=== PATIENT | female | born 2000 | race Caucasian/White ===

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

== ENCOUNTER 2018-11-29 13:36 | Emergency (ER) | payer MEDICAID ==
[2018-11-29 13:45] VITALS: BP 110/63
[2018-11-29] MEDS ORDERED: LIDOCAINE 2% VISCOUS SOLN 20 ML UDCUP PO ONE (14:08)
[2018-11-29] MEDS ORDERED: MAG HYDROX/AL HYDROX/SIMETH SUSP 30 ML UDCUP PO ONE (14:08)
[2018-11-29] MEDS ORDERED: METOCLOPRAMIDE HCL ORAL SOLN 10 MG/10 ML UDCUP PO ONE (14:08)
--- NOTE | 2018-11-29 14:09 | ER Document Report ---
ED Medical Screen (RME) - General Chief Complaint: Chest Pain Stated Complaint: CHEST WALL PAIN Time Seen by Provider: 11/29/18 14:03 Primary Care Provider: JACQUELYN LANG MD [Primary Care Provider] - Follow up as needed Mode of Arrival: Ambulatory Information source: Patient Notes: Patient is a 18-year-old female presented emergency department with midsternal chest pain that has been ongoing intermittently over the last 5 months. Patient reports it feels like a sharp stabbing burning pain and comes and goes intermittently. She denies any alleviating or exacerbating symptoms. She has not taken any medication for this. Exam: Heart sounds S1-S2 present with no ectopy noted. Lung sounds clear and equal bilaterally. Reproducible pain with palpation of the chest wall. I have greeted and performed a rapid initial assessment of this patient. A comprehensive ED assessment and evaluation of the patient, analysis of test results and completion of the medical decision making process will be conducted by additional ED providers. I have specifically instructed the patient or family members with the patient to immediately return to any nursing staff should anything change in the patient's condition or with their chief complaint. This medical record was dictated with voice recognizing software. There may be grammatical, syntax errors that are unintended. TRAVEL OUTSIDE OF THE [place] IN LAST 30 DAYS: No - Related Data Allergies/Adverse Reactions: No Known Allergies Allergy (Verified 08/15/17 16:26) Past Medical History Renal/ Medical History: Denies: Hx Peritoneal Dialysis Psychiatric Medical History: Reports: Hx Attention Deficit Hyperactivity Disorder, Hx Depression - Immunizations Immunizations up to date: Yes Hx Diphtheria, Pertussis, Tetanus Vaccination: Yes Physical Exam - Vital signs Vitals: Temp Pulse Resp BP Pulse Ox 98.1 F 78 18 110/63 98 11/29/18 13:44 11/29/18 13:44 11/29/18 13:44 11/29/18 13:44 11/29/18 13:44 Course - Vital Signs Vital signs: Temp Pulse Resp BP Pulse Ox 98.1 F 78 18 110/63 98 11/29/18 13:44 11/29/18 13:44 11/29/18 13:44 11/29/18 13:44 11/29/18 13:44 Doctor's Discharge - Discharge Referrals: JACQUELYN LANG MD [Primary Care Provider] - Follow up as needed
--- NOTE | 2018-11-29 15:18 | RADIOLOGY REPORT (SQ) ---
EXAM DESCRIPTION: CHEST 2 VIEWS COMPLETED DATE/TIME: 11/29/2018 2:53 pm REASON FOR STUDY: chest pain COMPARISON: None. EXAM PARAMETERS: NUMBER OF VIEWS: two views TECHNIQUE: Digital Frontal and Lateral radiographic views of the chest acquired. RADIATION DOSE: NA LIMITATIONS: none FINDINGS: LUNGS AND PLEURA: No opacities, masses or pneumothorax. No pleural effusion. MEDIASTINUM AND HILAR STRUCTURES: No masses or contour abnormalities. HEART AND VASCULAR STRUCTURES: Heart normal size. No evidence for failure. BONES: No acute findings. HARDWARE: None in the chest. OTHER: No other significant finding. IMPRESSION: NO ACUTE RADIOGRAPHIC FINDING IN THE CHEST. TECHNICAL DOCUMENTATION: JOB ID: [id number] [employer]- All Rights Reserved Reading location - IP/workstation name: [email or web address]
[2018-11-29] MEDS ORDERED: FAMOTIDINE 20 MG TABLET PO ONE (15:42)
[2018-11-29] MEDS ORDERED: SUCRALFATE 1 GM TABLET PO ONE (15:42)
--- NOTE | 2018-11-29 15:51 | ER Document Report ---
ED General - General Chief Complaint: Chest Pain Stated Complaint: CHEST WALL PAIN Time Seen by Provider: 11/29/18 14:03 Primary Care Provider: [facility] [Provider Group] - Follow up in 1 week JACQUELYN LANG MD [Primary Care Provider] - Follow up in 3-5 days Mode of Arrival: Ambulatory Notes: Patient is a 18-year-old female who presents emergency department with a chief complaint of chest pain. She states that she has had her pain on and off for the past 5 months. The pain is midsternal she states that it radiates to her left side. She states that she has a pain is intermittent. She has a past medical history of PCOS, which she has seen her financial engineer for. Patient states that she feels a little better with the GI cocktail she was given in triage, but continues to have a little bit of pain. TRAVEL OUTSIDE OF THE [place] IN LAST 30 DAYS: No - Related Data Allergies/Adverse Reactions: No Known Allergies Allergy (Verified 08/15/17 16:26) Past Medical History - General Information source: Patient - Social History Smoking Status: Former Smoker Chew tobacco use (# tins/day): No Drug Abuse: None Family History: Reviewed & Not Pertinent Patient has suicidal ideation: No Patient has homicidal ideation: No Renal/ Medical History: Denies: Hx Peritoneal Dialysis Psychiatric Medical History: Reports: Hx Attention Deficit Hyperactivity Disorder, Hx Depression - Immunizations Immunizations up to date: Yes Hx Diphtheria, Pertussis, Tetanus Vaccination: Yes Review of Systems - Review of Systems Notes: REVIEW OF SYSTEMS: CONSTITUTIONAL : Denies recent illness. Denies recent unintentional weight loss. Denies fever, chills, or sweats. EENT: Denies eye, ear, throat, or mouth pain, discharge, or symptoms. Denies nasal or sinus congestion. CARDIOVASCULAR: See HPI RESPIRATORY: Denies shortness of breath, cough, congestion, difficulty breathing, or wheezing. GASTROINTESTINAL: See HPI GENITOURINARY: Denies difficulty urinating, burning, blood in urine, urgency or frequency. MUSCULOSKELETAL: Denies neck and back pain. Denies joint pain or swelling. SKIN: Denies rash, itchiness, or lesions HEMATOLOGIC : Denies easy bruising or bleeding. LYMPHATIC: Denies swollen, painful, enlarged glands. NEUROLOGICAL: Denies no numbness or tingling denies weakness. Denies headache. Denies altered mental status. Denies alteration in speech. PSYCHIATRIC: Denies stress, anxiety, alteration in sleep patterns, or depression. All other systems reviewed and negative. Physical Exam - Vital signs Vitals: Temp Pulse Resp BP Pulse Ox 98.1 F 78 18 110/63 98 11/29/18 13:44 11/29/18 13:44 11/29/18 13:44 11/29/18 13:44 11/29/18 13:44 - Notes Notes: PHYSICAL EXAMINATION: GENERAL: Appears well, obese, well-nourished, no acute distress. HEAD: Normocephalic, atraumatic. EYES: PERRL, conjunctiva normal, all extraocular movements intact, sclera nonicteric ENT: Moist mucous membranes. NECK: Supple, no noticeable swelling, redness, rash. Normal range of motion. LUNGS: Equal breath sounds bilaterally and clear to auscultation. No wheezes rales or rhonchi. CARDIOVASCULAR: S1-S2, regular rate, regular rhythm. Radial pulses 2+, normal. ABDOMEN: Normoactive bowel sounds. Soft, tender right upper quadrant, no guarding, no rebound tenderness, and no masses palpated. EXTREMITIES: Normal strength and range of motion, no pitting or edema. No cyanosis. NEUROLOGICAL: Moves all extremities upon command. Strength 5/5 in all ext remities. PSYCH: Normal mood, normal affect. SKIN: Warm, dry. No rash, lesions, ulcerations noted. Normal skin turgor. Course - Re-evaluation Re-evalutation: 11/29/18 15:50 Patient has some pain in her right upper quadrant of her abdomen. She will be sent for an ultrasound to rule out cholelithiasis. 11/29/18 18:32 Patient had some sludge noted on her right upper quadrant ultrasound. I will have her follow-up with surgery outpatient. I will add chemistries to check to see if her labs are okay. She states that she needs to leave at this time, therefore I will call her if any of her labs are not normal. She states that she feels better after receiving Pepcid and Carafate. I will write her prescription for Pepcid and Carafate. She will follow-up with her primary care provider in regards to this issue. A very low suspicion for an acute FL, myocardial infarction, or any life-threatening etiology at this time. Follow-up precautions were given. Verbal discharge instructions were given to the patient. They verbalized understanding. They are stable for discharge. 11/29/18 20:00 Patient's chemistries are unremarkable at this time. No indication to call the patient due to her labs being normal. - Vital Signs Vital signs: Temp Pulse Resp BP Pulse Ox 98.1 F 78 18 110/63 98 11/29/18 13:44 11/29/18 13:44 11/29/18 13:44 11/29/18 13:44 11/29/18 13:44 - Laboratory Result Diagrams: 11/29/18 14:15 - EKG Interpretation by Me Additional EKG results interpreted by me: 11/29/18 18:33 Sinus rhythm. Rate 73. LA 174; QRS 80; QT 372; QTc 410. No ST elevations or depressions noted. Discharge - Discharge Clinical Impression: Sludge in gallbladder Chest pain Qualifiers: Chest pain type: unspecified Qualified Code(s): R07.9 - Chest pain, unspecified Condition: Stable Disposition: HOME, SELF-CARE Instructions: Low-Fat Diet ([facility]), Reflux Disease (GERD) ([facility]) Additional Instructions: You were seen today in the emergency department for chest pain. Your cardiac work-up was normal. Your chest x-ray was normal. Your ultrasound showed that you had sludge in your gallbladder. Please follow-up with surgery if you continue to have problems. Please follow-up with your primary care provider in regards to this issue. You are being prescribed Pepcid and Carafate. Please take these as directed. Prescriptions: Famotidine [Pepcid 20 mg Tablet] 20 mg PO BID #60 tablet Sucralfate [Carafate] 1 gm PO ACHS #120 oral.susp Referrals: JACQUELYN LANG MD [Primary Care Provider] - Follow up in 3-5 days [facility] [Provider Group] - Follow up in 1 week
--- NOTE | 2018-11-29 15:53 | EKG REPORT ---
SEVERITY:- NORMAL ECG - SINUS RHYTHM : Confirmed by: Yadira Calixto MD 29-Nov-2018 15:51:43
--- NOTE | 2018-11-29 18:09 | RADIOLOGY REPORT (SQ) ---
EXAM DESCRIPTION: U/S ABDOMEN LIMITED W/O DOP COMPLETED DATE/TIME: 11/29/2018 5:34 pm REASON FOR STUDY: RUQ pain/chest COMPARISON: None. TECHNIQUE: Dynamic and static grayscale images acquired of the abdomen and recorded on PACS. Additio nal selected color Doppler and spectral images recorded. LIMITATIONS: None. FINDINGS: PANCREAS: Poorly seen. No mass in the head of the pancreas. LIVER: Increased echogenicity. No definable mass. LIVER VASCULATURE: Normal directional flow of the main portal vein and hepatic veins. GALLBLADDER: A small amount of gallbladder sludge is present. No gallstones are present. There is n o wall thickening or pericholecystic fluid. ULTRASOUND-DETECTED MUSE'S SIGN: Negative. INTRAHEPATIC DUCTS AND COMMON DUCT: CBD and intrahepatic ducts normal caliber. No filling defects. INFERIOR VENA CAVA: Not imaged. AORTA: No aneurysm. RIGHT KIDNEY: Normal size, 11.3 cm. Normal echogenicity. No solid or suspicious masses. No hydroneph rosis. No calcifications. PERITONEAL AND RIGHT PLEURAL SPACE: No ascites or effusions. OTHER: No other significant findings. IMPRESSION: There is mild hepatic steatosis. There is small amount of gallbladder sludge with no ga llstones or evidence of cholecystitis. TECHNICAL DOCUMENTATION: JOB ID: [id number] [employer]- All Rights Reserved Reading location - IP/workstation name: [email or web address]
[2018-11-29 19:07] LABS: ALBUMIN 4.4 g/dL (3.5-5.0); ALKALINE PHOSPHATASE 92 U/L (38-126); ANION GAP 10 (5-19); ASPARTATE AMINO TRANSFERASE 33 U/L (14-36); BILIRUBIN,DIRECT 0.2 mg/dL (0.0-0.4); BILIRUBIN,TOTAL 0.4 mg/dL (0.2-1.3); BLOOD UREA NITROGEN 15 mg/dL (7-20); CALCIUM 9.9 mg/dL (8.4-10.2); CARBON DIOXIDE 26 mmol/L (22-30); CHLORIDE 104 mmol/L (98-107); GLUCOSE 92 mg/dL (75-110); POTASSIUM 4.3 mmol/L (3.6-5.0); TOTAL PROTEIN 7.5 g/dL (6.3-8.2)
== END 2018-11-29 18:45 | disposition home or self-care (01) ==
LOC: ER 13:36
DX: K82.8 Other specified diseases of gallbladder (principal); R07.9 Chest pain, unspecified; R10.11 Right upper quadrant pain; E66.9 Obesity, unspecified
CPT/HCPCS: 93005; 36415; 80053; 84484; 71046; 76705; 93010; J3490 ×5; 99285

== ENCOUNTER 2019-03-03 08:35 | Emergency (ER) | payer BC, MEDICAID ==
[2019-03-03 09:29] LABS: ABSOLUTE BASOPHILS # (AUTO) 0.1 10^3/uL (0.0-0.2); ABSOLUTE EOSINOPHILS # (AUTO) 0.2 10^3/uL (0.0-0.6); ABSOLUTE LYMPHOCYTES (AUTO) 2.3 10^3/uL (0.5-4.7); ABSOLUTE MONOCYTES (AUTO) 1.1 10^3/uL (0.1-1.4); ABSOLUTE NEUT (AUTO) 7.2 10^3/uL (1.7-8.2); BASOPHILS % (AUTO) 0.6 % (0-2); EOSINOPHILS % (AUTO) 1.6 % (0-6); HEMATOCRIT 41.1 % (36.0-47.0); LYMPHOCYTES % (AUTO) 20.8 % (13-45); MEAN CORPUSCULAR HEMOGLOBIN 28.3 pg (27.0-33.4); MEAN CORPUSCULAR HGB CONC 33.9 g/dL (32.0-36.0); MEAN CORPUSCULAR VOLUME 83 fl (80-97); MONOCYTES % (AUTO) 10.1 % (3-13); PLATELET COUNT 234 10^3/uL (150-450); RED BLOOD COUNT 4.93 10^6/uL (3.72-5.28); RED CELL DISTRIBUTION WIDTH 14.2 % (11.5-14.0); SEGMENTED NEUTROPHILS % (AUTO) 66.9 % (42-78); TOTAL CELLS COUNTED % (AUTO) 100 %; WHITE BLOOD COUNT 10.8 10^3/uL (4.0-10.5)
[2019-03-03 09:49] LABS: APPEARANCE,URINE CLOUDY; BILIRUBIN,URINE NEGATIVE (NEGATIVE); CALCIUM OXALATE CRYSTALS,URINE MANY /HPF; COLOR,URINE AMBER; GLUCOSE, URINE NEGATIVE (NEGATIVE); KETONES,URINE NEGATIVE (NEGATIVE); LEUKOCYTE ESTERASE,URINE MODERATE (NEGATIVE); NITRITE,URINE NEGATIVE (NEGATIVE); PROTEIN,URINE 30 mg/dL (NEGATIVE); UROBILINOGEN,URINE NEGATIVE mg/dL (<2.0)
[2019-03-03 09:57] LABS: ALBUMIN 4.4 g/dL (3.5-5.0); ALKALINE PHOSPHATASE 94 U/L (38-126); ANION GAP 9 (5-19); ASPARTATE AMINO TRANSFERASE 37 U/L (14-36); BILIRUBIN,DIRECT 0.1 mg/dL (0.0-0.4); BILIRUBIN,TOTAL 0.6 mg/dL (0.2-1.3); BLOOD UREA NITROGEN 12 mg/dL (7-20); CALCIUM 9.9 mg/dL (8.4-10.2); CARBON DIOXIDE 29 mmol/L (22-30); CHLORIDE 101 mmol/L (98-107); GLUCOSE 82 mg/dL (75-110); TOTAL PROTEIN 7.8 g/dL (6.3-8.2)
--- NOTE | 2019-03-03 10:21 | ER Document Report ---
ED General - General Chief Complaint: Abdominal Pain Stated Complaint: LOW RIGHT PELVIC PAIN Time Seen by Provider: 03/03/19 10:04 Primary Care Provider: MAYRA NELSON MD [ACTIVE STAFF] - Follow up in 1 week JACQUELYN LANG MD [Primary Care Provider] - Follow up in 3-5 days Mode of Arrival: Ambulatory Information source: Patient, Parent, [facility] Records Notes: 19-year-old female with PCOS, ADHD presents with complaint of right lower quadrant abdominal pain that started 4 days prior to arrival. Patient describes the pain as a intermittent stabbing pain that is worse with standing, walking. Patient reports increased urinary frequency but denies dysuria, hematuria, vaginal discharge, fever, chills, nausea, vomiting, diarrhea, black or bloody stools. Patient's last menstrual period was 6 months ago. She is sexually active and does not use protection. TRAVEL OUTSIDE OF THE [place] IN LAST 30 DAYS: No - HPI Onset: Other Onset/Duration: Gradual, Intermittent Quality of pain: Sharp Severity: Moderate Pain Level: 2 Associated symptoms: denies: Body/muscle aches, Chest pain, Diarrhea, Fever, Headache, Nausea, Vomiting, Shortness of breath Exacerbated by: Standing, Movement, Walking Relieved by: Denies Similar symptoms previously: No Recently seen / treated by doctor: No - Related Data Allergies/Adverse Reactions: No Known Allergies Allergy (Verified 03/03/19 08:41) Past Medical History - General Information source: Patient Last Menstrual Period: unknown - Social History Smoking Status: Current Some Day Smoker Chew tobacco use (# tins/day): No Frequency of alcohol use: Occasional Drug Abuse: Marijuana Lives with: Parents Family History: Reviewed & Not Pertinent Patient has suicidal ideation: No Patient has homicidal ideation: No Renal/ Medical History: Reports: Other - PCOS. Denies: Hx Peritoneal Dialysis Psychiatric Medical History: Reports: Hx Attention Deficit Hyperactivity Disorder, Hx Depression - Immunizations Immunizations up to date: Yes Hx Diphtheria, Pertussis, Tetanus Vaccination: Yes Review of Systems - Review of Systems Notes: REVIEW OF SYSTEMS: CONSTITUTIONAL : Denies fever, chills, or sweats. Denies recent illness. Denies weight loss, recent hospitalizations. EENT: Denies visual changes, eye pain. Denies sore throat, oral lesions, difficulty swallowing. CARDIOVASCULAR: Denies chest pain. Denies palpitations. Denies lower extremity edema. RESPIRATORY: Denies cough. Denies shortness of breath, wheezing. GASTROINTESTINAL: Denies abdominal distention. Denies nausea, vomiting, or diarrhea. Denies blood in vomitus, stools, or per rectum. Denies black, tarry stools. Denies constipation. GENITOURINARY: Denies difficulty urinating, painful urination, blood in urine, or vaginal discharge. MUSCULOSKELETAL: Denies back or neck pain or stiffness. Denies joint pain or swelling. SKIN: Denies rash, lesions or sores. HEMATOLOGIC : Denies easy bruising or bleeding. LYMPHATIC: Denies swollen glands. NEUROLOGICAL: Denies confusion or altered mental status. Denies loss of consc iousness. Denies dizziness or lightheadedness. Denies headache. Denies weakness or paralysis. Denies problems difficulty with ambulation, slurred speech. Denies sensory loss, numbness, or tingling. Denies seizures. PSYCHIATRIC: Denies anxiety or stress. Denies depression, suicidal ideation, or homicidal ideation. Denies visual or auditory hallucinations. Physical Exam - Vital signs Vitals: Temp Pulse Resp BP Pulse Ox 97.9 F 85 16 120/77 100 03/03/19 09:21 03/03/19 09:21 03/03/19 09:21 03/03/19 09:21 03/03/19 09:21 - Notes Notes: PHYSICAL EXAMINATION: GENERAL: Well-appearing, well-nourished and in no acute distress. HEAD: Atraumatic, normocephalic. EYES: Pupils equal round and reactive to light, extraocular movements intact, conjunctiva are normal. ENT: Nares patent, oropharynx clear without exudates. Moist mucous membranes. NECK: Normal range of motion, supple without lymphadenopathy LUNGS: Breath sounds clear to auscultation bilaterally and equal. No wheezes rales or rhonchi. HEART: Regular rate and rhythm without murmurs ABDOMEN: Soft, suprapubic tenderness with palpation., nondistended abdomen. No guarding, no rebound. No masses appreciated. No CVA tenderness. Female : deferred Musculoskeletal: Normal range of motion, no pitting or edema. No cyanosis. NEUROLOGICAL: Cranial nerves grossly intact. Normal speech, normal gait. Normal sensory, motor exams PSYCH: Normal mood, normal affect. SKIN: Warm, Dry, normal turgor, no rashes or lesions noted. Course - Re-evaluation Re-evalutation: Laboratory 03/03/19 03/03/19 03/03/19 09:12 09:12 09:12 WBC 10.8 H RBC 4.93 Hgb 14.0 Hct 41.1 MCV 83 MCH 28.3 MCHC 33.9 RDW 14.2 H Plt Count 234 Lymph % (Auto) 20.8 [place] % (Auto) 10.1 Eos % (Auto) 1.6 Baso % (Auto) 0.6 Absolute Neuts (auto) 7.2 Absolute Lymphs (auto) 2.3 Absolute Monos (auto) 1.1 Absolute Eos (auto) 0.2 Absolute Basos (auto) 0.1 Seg Neutrophils % 66.9 Sodium 139.3 Potassium 4.0 Chloride 101 Carbon Dioxide 29 Anion Gap 9 BUN 12 Creatinine 0.81 Est GFR ( Amer) > 60 Est GFR (MDRD) Non-Af > 60 Glucose 82 Calcium 9.9 Total Bilirubin 0.6 Direct Bilirubin 0.1 Neonat Total Bilirubin Not Reportable Neonat Direct Bilirubin Not Reportable Neonat Indirect Bili Not Reportable AST 37 H ALT 52 Alkaline Phosphatase 94 Total Protein 7.8 Albumin 4.4 Lipase 41.8 Urine Color NEPTALI Urine Appearance CLOUDY Urine pH 5.0 Ur Specific [place] 1.030 Urine Protein 30 H Urine Glucose (UA) NEGATIVE Urine Ketones NEGATIVE Urine Blood MODERATE H Urine Nitrite NEGATIVE Urine Bilirubin NEGATIVE Urine Urobilinogen NEGATIVE Ur Leukocyte Esterase MODERATE H Urine WBC (Auto) 24 Urine RBC (Auto) 22 U Hyaline Cast (Auto) 3 Urine Bacteria (Auto) 1+ Squamous Epi Cells Auto 35 Calcium Oxalate Cr Auto MANY Urine Mucus (Auto) MANY Urine Ascorbic Acid NEGATIVE Urine HCG, Qual NEGATIVE Chlamydia DNA (PCR) N.gonorrhoeae DNA (PCR) 03/03/19 09:12 WBC RBC Hgb Hct MCV MCH MCHC RDW Plt Count Lymph % (Auto) [place] % (Auto) Eos % (Auto) Baso % (Auto) Absolute Neuts (auto) Absolute Lymphs (auto) Absolute Monos (auto) Absolute Eos (auto) Absolute Basos (auto) Seg Neutrophils % Sodium Potassium Chloride Carbon Dioxide Anion Gap BUN Creatinine Est GFR ( Amer) Est GFR (MDRD) Non-Af Glucose Calcium Total Bilirubin Direct Bilirubin Neonat Total Bilirubin Neonat Direct Bilirubin Neonat Indirect Bili AST ALT Alkaline Phosphatase Total Protein Albumin Lipase Urine Color Urine Appearance Urine pH Ur Specific [place] Urine Protein Urine Glucose (UA) Urine Ketones Urine Blood Urine Nitrite Urine Bilirubin Urine Urobilinogen Ur Leukocyte Esterase Urine WBC (Auto) Urine RBC (Auto) U Hyaline Cast (Auto) Urine Bacteria (Auto) Squamous Epi Cells Auto Calcium Oxalate Cr Auto Urine Mucus (Auto) Urine Ascorbic Acid Urine HCG, Qual Chlamydia DNA (PCR) Cancelled N.gonorrhoeae DNA (PCR) Cancelled Laboratory 03/03/19 03/03/19 03/03/19 09:12 09:12 09:12 WBC 10.8 H RBC 4.93 Hgb 14.0 Hct 41.1 MCV 83 MCH 28.3 MCHC 33.9 RDW 14.2 H Plt Count 234 Lymph % (Auto) 20.8 [place] % (Auto) 10.1 Eos % (Auto) 1.6 Baso % (Auto) 0.6 Absolute Neuts (auto) 7.2 Absolute Lymphs (auto) 2.3 Absolute Monos (auto) 1.1 Absolute Eos (auto) 0.2 Absolute Basos (auto) 0.1 Seg Neutrophils % 66.9 Sodium 139.3 Potassium 4.0 Chloride 101 Carbon Dioxide 29 Anion Gap 9 BUN 12 Creatinine 0.81 Est GFR ( Amer) > 60 Est GFR (MDRD) Non-Af > 60 Glucose 82 Calcium 9.9 Total Bilirubin 0.6 Direct Bilirubin 0.1 Neonat Total Bilirubin Not Reportable Neonat Direct Bilirubin Not Reportable Neonat Indirect Bili Not Reportable AST 37 H ALT 52 Alkaline Phosphatase 94 Total Protein 7.8 Albumin 4.4 Lipase 41.8 Urine Color NEPTALI Urine Appearance CLOUDY Urine pH 5.0 Ur Specific [place] 1.030 Urine Protein 30 H Urine Glucose (UA) NEGATIVE Urine Ketones NEGATIVE Urine Blood MODERATE H Urine Nitrite NEGATIVE Urine Bilirubin NEGATIVE Urine Urobilinogen NEGATIVE Ur Leukocyte Esterase MODERATE H Urine WBC (Auto) 24 Urine RBC (Auto) 22 U Hyaline Cast (Auto) 3 Urine Bacteria (Auto) 1+ Squamous Epi Cells Auto 35 Calcium Oxalate Cr Auto MANY Urine Mucus (Auto) MANY Urine Ascorbic Acid NEGATIVE Urine HCG, Qual NEGATIVE Chlamydia DNA (PCR) N.gonorrhoeae DNA (PCR) 03/03/19 09:12 WBC RBC Hgb Hct MCV MCH MCHC RDW Plt Count Lymph % (Auto) [place] % (Auto) Eos % (Auto) Baso % (Auto) Absolute Neuts (auto) Absolute Lymphs (auto) Absolute Monos (auto) Absolute Eos (auto) Absolute Basos (auto) Seg Neutrophils % Sodium Potassium Chloride Carbon Dioxide Anion Gap BUN Creatinine Est GFR ( Amer) Est GFR (MDRD) Non-Af Glucose Calcium Total Bilirubin Direct Bilirubin Neonat Total Bilirubin Neonat Direct Bilirubin Neonat Indirect Bili AST ALT Alkaline Phosphatase Total Protein Albumin Lipase Urine Color Urine Appearance Urine pH Ur Specific [place] Urine Protein Urine Glucose (UA) Urine Ketones Urine Blood Urine Nitrite Urine Bilirubin Urine Urobilinogen Ur Leukocyte Esterase Urine WBC (Auto) Urine RBC (Auto) U Hyaline Cast (Auto) Urine Bacteria (Auto) Squamous Epi Cells Auto Calcium Oxalate Cr Auto Urine Mucus (Auto) Urine Ascorbic Acid Urine HCG, Qual Chlamydia DNA (PCR) Cancelled N.gonorrhoeae DNA (PCR) Cancelled Temp Pulse Resp BP Pulse Ox 97.9 F 85 16 120/77 100 03/03/19 09:21 03/03/19 09:21 03/03/19 09:21 03/03/19 09:21 03/03/19 09:21 Abdomen Ultrasound 03/03/19 00:00 IMPRESSION: Fatty liver No gallstones. No gallbladder wall thickening. Negative sonographic Calvin's sign Transvaginal US 03/03/19 10:13 IMPRESSION: LEFT OVARY CYST 2.3 X 2 CM WITH THICK WALL, NO INTERNAL COLOR FLOW. THIS PROBABLY REPRESENTS RESIDUA OF AN OLD HEMORRHAGIC CYST. CONSIDER FOLLOW- UP PELVIC ULTRASOUND IN 1 TO 2 MENSTRUAL CYCLES TO ASSESS FOR RESOLUTION OF THIS FINDING OTHERWISE, UNREMARKABLE TRANSVAGINAL PELVIC ULTRASOUND. 03/03/19 12:22 Patient presents with symptoms consistent with an acute cystitis. Vitals wnl. No history of fever, flank pain, or constitution symptoms to suggest ascending infection at this time. Patient is well in appearance, tolerating oral intake without difficulty. No focal abdominal tenderness to suggest acute appendicitis, biliary pathology, acute pancreatitis, tubo-ovarian abscesses, or pelvic inflammatory disease. Patient will be started on antibiotics at this time. A culture has been sent. They will be discharged with return precautions and follow-up recommendations. Patient was provided a copy of her ultrasound report. She was informed of incidental findings of hemorrhagic cyst and need for repeat ultrasound. Parents are at the bedside. Patient was evaluated and treated as appropriate for the patient's presenting symptoms and complaint, with consideration of any critical or life threatening conditions that may be associated with their obtained history and exam as noted above. All results were discussed with patient and... Patient provided the opportunity to ask questions, and express concerns. Patient was educated on treatments based on their presumed diagnosis as noted above. At this time we will discharge the patient with return precautions and follow-up recommendations. Verbal discharge instructions given a the bedside. Medication warnings reviewed. Patient is in agreement with this plan and has verbalized understanding of return precautions. After careful consideration I feel that that patient can be safely discharged from the emergency department, they were advised to followup with a primary care physician in 2-3 days. Dictation on this chart was performed using voice recognition software and may result in unintended grammatical, spelling, syntax or errors. - Vital Signs Vital signs: Temp Pulse Resp BP Pulse Ox 97.9 F 85 16 120/77 100 03/03/19 09:21 03/03/19 09:21 03/03/19 09:21 03/03/19 09:21 03/03/19 09:21 - Laboratory Result Diagrams: 03/03/19 09:12 03/03/19 09:12 Laboratory results interpreted by me: 03/03/19 03/03/19 03/03/19 09:12 09:12 09:12 WBC 10.8 H RDW 14.2 H AST 37 H Urine Protein 30 H Urine Blood MODERATE H Ur Leukocyte Esterase MODERATE H - Diagnostic Test Radiology reviewed: Image reviewed, Reports reviewed Discharge - Discharge Clinical Impression: Hemorrhagic cyst Urinary tract infection Qualifiers: Urinary tract infection type: site unspecified Hematuria presence: without hematuria Qualified Code(s): N39.0 - Urinary tract infection, site not specified Condition: Good Disposition: HOME, SELF-CARE Instructions: Ovarian Cyst ([facility]), Urinary Tract Infection ([facility]) Additional Instructions: Your urine shows findings consistent with a urinary tract infection. Please take all the antibiotics as directed even if your symptoms have improved. Please follow-up with your primary care physician as needed. Return to emergency room if you develop fever >101F, persistent vomiting, become lethargic, have severe pain in your sides, or any other symptoms that are concerning to you. Prescriptions: Cephalexin Monohydrate [Keflex 500 mg Capsule] 500 mg PO BID 5 Days #10 capsule Referrals: MAYRA NELSON MD [ACTIVE STAFF] - Follow up in 1 week JACQUELYN LANG MD [Primary Care Provider] - Follow up in 3-5 days
[2019-03-03] MEDS ORDERED: CEFTRIAXONE 1 GM/D5W RTU 1 GM/50 ML RTUPB IV ONE (11:00)
--- NOTE | 2019-03-03 12:00 | RADIOLOGY REPORT (SQ) ---
EXAM DESCRIPTION: U/S ABDOMEN LIMITED W/O DOP COMPLETED DATE/TIME: 03/03/2019 11:34 am REASON FOR STUDY: Eval GB COMPARISON: Right upper quadrant ultrasound 11/29/2018 TECHNIQUE: Dynamic and static grayscale images acquired of the abdomen and recorded on PACS. Additio nal selected color Doppler and spectral images recorded. LIMITATIONS: Midline bowel gas, large body habitus FINDINGS: PANCREAS: Limited view of the midline pancreas unremarkable LIVER: Echogenic from diffuse fatty infiltration or diffuse hepatocellular disease. No gross biliary ductal dilatation or focal masses. No hepatomegaly LIVER VASCULATURE: Normal directional flow of the main portal vein and hepatic veins. GALLBLADDER: No stones. Normal wall thickness. No pericholecystic fluid. ULTRASOUND-DETECTED CALVIN'S SIGN: Negative. INTRAHEPATIC DUCTS AND COMMON DUCT: CBD and intrahepatic ducts normal caliber. No filling defects. INFERIOR VENA CAVA: Not well seen due to attenuation from the liver AORTA: Not well seen due to midline bowel gas RIGHT KIDNEY: Normal size. Normal echogenicity. No solid or suspicious masses. No hydronephrosis. No calcifications. PERITONEAL AND RIGHT PLEURAL SPACE: No ascites or effusions. OTHER: No other significant findings. IMPRESSION: Fatty liver No gallstones. No gallbladder wall thickening. Negative sonographic Calvin's sign TECHNICAL DOCUMENTATION: JOB ID: [id number] [employer]- All Rights Reserved Reading location - IP/workstation name: [email or web address]
--- NOTE | 2019-03-03 12:05 | RADIOLOGY REPORT (SQ) ---
EXAM DESCRIPTION: U/S NON OB PEL TV W/DOPPLER COMPLETED DATE/TIME: 03/03/2019 11:34 am REASON FOR STUDY: rlq pain COMPARISON: Pelvic ultrasound 05/21/2017, 04/26/2016 TECHNIQUE: Dynamic and static grayscale images acquired of the pelvis via transvaginal approach and recorded on PACS. Additional selected color Doppler and spectral images recorded. Urine test negative today. LIMITATIONS: None. FINDINGS: UTERUS: Contour normal. No mass. Uterus measures 8 x 4 x 3 cm in size ENDOMETRIAL STRIPE: No focal or generalized thickening. No masses. 8 mm in thickness CERVIX: Closed, 2 cm in length with 15 mm septated nabothian cyst. RIGHT OVARY AND DOPPLER: Normal size, 2.7 x 2 x 1.7 cm. No worrisome masses. Normal arterial vascular flow without evidence for torsion. LEFT OVARY AND DOPPLER: Normal size, 4.1 x 2.5 x 2.3 cm in size. There is a thick walled cyst with a nechoic central fluid. Overall this measures 2.3 x 2 cm in size. No color flow in the wall. This p robably represents a resolved hemorrhagic left ovarian cyst. Normal ovary arterial vascular flow without evidence for torsion. IMPRESSION: LEFT OVARY CYST 2.3 X 2 CM WITH THICK WALL, NO INTERNAL COLOR FLOW. THIS PROBABLY REPRE SENTS RESIDUA OF AN OLD HEMORRHAGIC CYST. CONSIDER FOLLOW-UP PELVIC ULTRASOUND IN 1 TO 2 MENSTRUAL C YCLES TO ASSESS FOR RESOLUTION OF THIS FINDING OTHERWISE, UNREMARKABLE TRANSVAGINAL PELVIC ULTRASOUND. TECHNICAL DOCUMENTATION: JOB ID: [id number] [employer]- All Rights Reserved Rev-08/28 Reading location - IP/workstation name: [email or web address]
[2019-03-03 12:24] LABS: CHLAM PCR NOT DETECTED (NOT DETECT)
[2019-03-03 12:36] VITALS: BP 100/60
== END 2019-03-03 12:37 | disposition home or self-care (01) ==
LOC: ER 08:35
DX: N39.0 Urinary tract infection, site not specified (principal); E28.2 Polycystic ovarian syndrome; K76.0 Fatty (change of) liver, not elsewhere classified; R10.31 Right lower quadrant pain; R35.0 Frequency of micturition; F17.200 Nicotine dependence, unspecified, uncomplicated; F12.10 Cannabis abuse, uncomplicated
CPT/HCPCS: 36415; 83690; 85025; 81025; 80053; 81001; 87491; 87591; 76705; 76830; 93976; J0696

== ENCOUNTER 2019-04-26 17:18 | Emergency (ER) | payer BC ==
--- NOTE | 2019-04-26 18:34 | ER Document Report ---
ED Medical Screen (RME) - General Chief Complaint: Flank Pain Stated Complaint: RIGHT FLANK PAIN Time Seen by Provider: 04/26/19 18:30 Primary Care Provider: JACQUELYN LANG MD [Primary Care Provider] - Follow up as needed TRAVEL OUTSIDE OF THE [place] IN LAST 30 DAYS: No - HPI Notes: 04/26/19 18:33 Patient is a 19-year-old female with a history of gallbladder sludge who presents complaining right upper quadrant pain that is been intermittent for the past couple months and having nausea and vomiting over the past couple days with increase of pain. No fever. I have treated and performed a rapid initial assessment of this patient. A comprehensive ED assessment and evaluation of the patient, analysis of test results and completion of medical decision making process will be conducted by additional ED providers. PHYSICAL EXAMINATION: GENERAL: Well-appearing, well-nourished and in no acute distress. A&Ox4. Answers questions appropriately. Abdomen: Limited exam in triage, but tenderness noted to the right upper quadrant. - Related Data Allergies/Adverse Reactions: No Known Allergies Allergy (Verified 04/26/19 18:25) Past Medical History - Social History Chew tobacco use (# tins/day): No Frequency of alcohol use: Occasional Renal/ Medical History: Denies: Hx Peritoneal Dialysis Psychiatric Medical History: Reports: Hx Attention Deficit Hyperactivity Disorder, Hx Depression - Immunizations Immunizations up to date: Yes Hx Diphtheria, Pertussis, Tetanus Vaccination: Yes Physical Exam - Vital signs Vitals: Temp Pulse Resp BP Pulse Ox 98.1 F 76 20 112/68 97 04/26/19 17:43 04/26/19 17:43 04/26/19 17:43 04/26/19 17:43 04/26/19 17:43 Course - Vital Signs Vital signs: Temp Pulse Resp BP Pulse Ox 98.1 F 76 20 112/68 97 04/26/19 17:43 04/26/19 17:43 04/26/19 17:43 04/26/19 17:43 04/26/19 17:43 Doctor's Discharge - Discharge Referrals: JACQUELYN LANG MD [Primary Care Provider] - Follow up as needed
[2019-04-26 19:01] LABS: ABSOLUTE BASOPHILS # (AUTO) 0.1 10^3/uL (0.0-0.2); ABSOLUTE EOSINOPHILS # (AUTO) 0.1 10^3/uL (0.0-0.6); ABSOLUTE LYMPHOCYTES (AUTO) 2.4 10^3/uL (0.5-4.7); ABSOLUTE MONOCYTES (AUTO) 0.6 10^3/uL (0.1-1.4); ABSOLUTE NEUT (AUTO) 6.4 10^3/uL (1.7-8.2); BASOPHILS % (AUTO) 0.7 % (0-2); EOSINOPHILS % (AUTO) 1.4 % (0-6); HEMATOCRIT 41.8 % (36.0-47.0); HEMOGLOBIN 13.9 g/dL (12.0-15.5); LYMPHOCYTES % (AUTO) 25.1 % (13-45); MEAN CORPUSCULAR HGB CONC 33.3 g/dL (32.0-36.0); MEAN CORPUSCULAR VOLUME 84 fl (80-97); MONOCYTES % (AUTO) 6.5 % (3-13); PLATELET COUNT 247 10^3/uL (150-450); RED BLOOD COUNT 4.98 10^6/uL (3.72-5.28); RED CELL DISTRIBUTION WIDTH 14.5 % (11.5-14.0); SEGMENTED NEUTROPHILS % (AUTO) 66.3 % (42-78); TOTAL CELLS COUNTED % (AUTO) 100 %; WHITE BLOOD COUNT 9.7 10^3/uL (4.0-10.5)
[2019-04-26 19:06] LABS: APPEARANCE,URINE CLOUDY; BILIRUBIN,URINE NEGATIVE (NEGATIVE); COLOR,URINE YELLOW; GLUCOSE, URINE NEGATIVE (NEGATIVE); KETONES,URINE TRACE mg/dL (NEGATIVE); PROTEIN,URINE 30 mg/dL (NEGATIVE); URINE SPECIFIC GRAVITY 1.029; UROBILINOGEN,URINE NEGATIVE mg/dL (<2.0)
[2019-04-26 19:25] LABS: ALBUMIN 4.5 g/dL (3.5-5.0); ALKALINE PHOSPHATASE 100 U/L (38-126); ANION GAP 12 (5-19); ASPARTATE AMINO TRANSFERASE 46 U/L (14-36); BILIRUBIN,DIRECT 0.3 mg/dL (0.0-0.4); BILIRUBIN,TOTAL 0.6 mg/dL (0.2-1.3); BLOOD UREA NITROGEN 17 mg/dL (7-20); CALCIUM 10.1 mg/dL (8.4-10.2); CARBON DIOXIDE 24 mmol/L (22-30); CHLORIDE 104 mmol/L (98-107); GLUCOSE 86 mg/dL (75-110); POTASSIUM 4.5 mmol/L (3.6-5.0)
[2019-04-26] MEDS ORDERED: NORMAL SALINE 1000 ML 1,000 ML IV ONE (19:30)
--- NOTE | 2019-04-26 19:31 | ER Document Report ---
ED GI/ - General Chief Complaint: Flank Pain Stated Complaint: RIGHT FLANK PAIN Time Seen by Provider: 04/26/19 18:30 Primary Care Provider: [facility] [Provider Group] - Follow up as needed Notes: Patient is a 19-year-old female with a history of PCOS who presents to the emergency department with a chief complaint of upper abdominal pain. Patient reports that she has been told in the past that she has gallbladder sludge. Patient reports she has had intermittent upper abdominal pain over the past few months which did become worse over the past few days. Patient reports that this was exacerbated by eating Kiny[place]anda food. Patient also reports that she is tender throughout her whole abdomen. Patient reports her last bowel movement was a few days ago. Patient reports she had multiple episodes of vomiting a few days ago after eating [employer]. Patient reports that her boyfriend also had similar symptoms as he did eat the same thing. Patient denies fever. Patient also reports urinary frequency. Denies back pain. TRAVEL OUTSIDE OF THE [place] IN LAST 30 DAYS: No - Related Data Allergies/Adverse Reactions: No Known Allergies Allergy (Verified 04/26/19 18:25) Past Medical History - General Information source: Patient - Social History Smoking Status: Never Smoker Chew tobacco use (# tins/day): No Frequency of alcohol use: Occasional Lives with: Spouse/Significant other Family History: Reviewed & Not Pertinent Patient has suicidal ideation: No Patient has homicidal ideation: No - Past Medical History Cardiac Medical History: Reports: None Pulmonary Medical History: Reports: None EENT Medical History: Reports: None Neurological Medical History: Reports: None Endocrine Medical History: Reports: None Renal/ Medical History: Reports: None. Denies: Hx Peritoneal Dialysis Malignancy Medical History: Reports: None GI Medical History: Reports: None Musculoskeletal Medical History: Reports None Skin Medical History: Reports None Psychiatric Medical History: Reports: Hx Attention Deficit Hyperactivity Disorder, Hx Depression Traumatic Medical History: Reports: None Infectious Medical History: Reports: None Surgical Hx: Negative - Immunizations Immunizations up to date: Yes Hx Diphtheria, Pertussis, Tetanus Vaccination: Yes Review of Systems - Review of Systems Constitutional: No symptoms reported EENT: No symptoms reported Cardiovascular: No symptoms reported Respiratory: No symptoms reported Gastrointestinal: See HPI Genitourinary: See HPI Female Genitourinary: No symptoms reported Musculoskeletal: No symptoms reported Skin: No symptoms reported Hematologic/Lymphatic: No symptoms reported Neurological/Psychological: No symptoms reported Physical Exam - Vital signs Vitals: Temp Pulse Resp BP Pulse Ox 98.1 F 76 20 112/68 97 04/26/19 17:43 04/26/19 17:43 04/26/19 17:43 04/26/19 17:43 04/26/19 17:43 Interpretation: Normal - Notes Notes: GENERAL: Well-appearing, well-nourished and in no acute distress. HEAD: Atraumatic, normocephalic. EYES: Pupils equal round and reactive to light, extraocular movements intact, sclera anicteric, conjunctiva are normal. ENT: Nares patent, oropharynx clear without exudates. Moist mucous membranes. NECK: Normal range of motion, supple without lymphadenopathy or JVD. LUNGS: Breath sounds clear to auscultation bilaterally and equal. No wheezes rales or rhonchi. HEART: Regular rate and rhythm without murmurs, rubs or gallops. ABDOMEN: Soft, generalized abdominal tenderness, worse in upper abd with palpation, normoactive bowel sounds. No guarding, no rebound. No masses appreciated. BACK: No cervical, thoracic, lumbar midline tenderness. No saddle anesthesia, normal distal neurovascular exam. GENITOURINARY: Deferred. EXTREMITIES: Normal range of motion, no pitting or edema. No clubbing or cyanosis. NEUROLOGICAL: Cranial nerves II through XII grossly intact. Normal speech, normal gait. PSYCH: Normal mood, normal affect. SKIN: Warm, Dry, normal turgor, no rashes or lesions noted. Course - Re-evaluation Re-evalutation: 04/26/19 20:18 Patient ultrasound of the right upper quadrant was essentially negative. No concern for acute cholecystitis. Patient does have a fatty liver. This would explain the slight elevation in her AST. Patient does have significant upper abdominal quadrant tenderness as well as some diffuse lower abdominal tenderness. Patient reports she has never had a CAT scan in the past. Will o btain a CT. Patient reports she does have a history of PCOS but that the lower abdominal pain is different. 04/26/19 22:[address] the abdomen did show a fatty liver, a cyst on the left ovary. Did not visualize the appendix. My concern for appendicitis is low as she is having mostly upper abdominal discomfort and left upper quadrant pain. Patient to be referred to [facility] for continued right upper quadrant pain. Patient is nontoxic-appearing in no acute distress. Patient's urinalysis was slightly contaminated with 32 epithelial cells. We will treat the patient as she does have a urinary frequency. Patient given strict return precautions. - Vital Signs Vital signs: Temp Pulse Resp BP Pulse Ox 98.1 F 76 20 112/68 97 04/26/19 17:43 04/26/19 17:43 04/26/19 17:43 04/26/19 17:43 04/26/19 17:43 - Laboratory Result Diagrams: 04/26/19 18:45 04/26/19 18:45 Laboratory results interpreted by me: 04/26/19 04/26/19 04/26/19 18:45 18:45 18:45 RDW 14.5 H AST 46 H Urine Protein 30 H Urine Ketones TRACE H Urine Blood MODERATE H Leukocyte Esterase Rfl LARGE H 04/26/19 20:17 Patient does not show a significant leukocytosis, anemia, alteration electrolytes or kidney function. Patient does have a slight increase in her AST. Patient does have a large amount of leukocytes, and 48 WBCs although there was a significant amount of epithelial cells at 32. Patient a UCG is negative. Laboratory 04/26/19 04/26/19 04/26/19 18:45 18:45 18:45 WBC 9.7 RBC 4.98 Hgb 13.9 Hct 41.8 MCV 84 MCH 28.0 MCHC 33.3 RDW 14.5 H Plt Count 247 Lymph % (Auto) 25.1 Nicholas % (Auto) 6.5 Eos % (Auto) 1.4 Baso % (Auto) 0.7 Absolute Neuts (auto) 6.4 Absolute Lymphs (auto) 2.4 Absolute Monos (auto) 0.6 Absolute Eos (auto) 0.1 Absolute Basos (auto) 0.1 Seg Neutrophils % 66.3 Sodium 140.1 Potassium 4.5 Chloride 104 Carbon Dioxide 24 Anion Gap 12 BUN 17 Creatinine 0.80 Est GFR ( Amer) > 60 Est GFR (MDRD) Non-Af > 60 Glucose 86 Calcium 10.1 Total Bilirubin 0.6 Direct Bilirubin 0.3 Neonat Total Bilirubin Not Reportable Neonat Direct Bilirubin Not Reportable Neonat Indirect Bili Not Reportable AST 46 H ALT 67 Alkaline Phosphatase 100 Total Protein 8.0 Albumin 4.5 Lipase 50.2 Urine Color YELLOW Urine Appearance CLOUDY Urine pH 5.0 Ur Specific [place] 1.029 Urine Protein 30 H Urine Glucose (UA) NEGATIVE Urine Ketones TRACE H Urine Blood MODERATE H Urine Nitrite (Reflex) NEGATIVE Urine Bilirubin NEGATIVE Urine Urobilinogen NEGATIVE Leukocyte Esterase Rfl LARGE H Urine RBC (Auto) 3 Urine WBC (Reflex) 48 Squamous Epi Cells Auto 32 Urine Mucus (Auto) FEW Urine Ascorbic Acid NEGATIVE Urine HCG, Qual NEGATIVE - Diagnostic Test Radiology reviewed: Reports reviewed Radiology results interpreted by me: 04/26/19 21:22 Abdomen Ultrasound 04/26/19 18:32 IMPRESSION: NORMAL RIGHT UPPER QUADRANT ULTRASOUND. Abdomen/Pelvis CT 04/26/19 20:14 IMPRESSION: No acute intra-abdominal process is identified. Incidental note is made of hepatic steatosis and a presumed small dermoid of the left ovary. TECHNICAL DOCUMENTATION: Quality ID # 436: Final reports with documentation of one or more dose reduction techniques (e.g., Automated exposure control, adjustment of the mA and/or kV according to patient size, use of iterative reconstruction technique) copyright 2011 [employer]- All Rights Reserved Discharge - Discharge Clinical Impression: Abdominal pain, Urinary frequency, Urinary tract infection, Dermoid cyst of left ovary, Fatty liver Condition: Stable Disposition: HOME, SELF-CARE Additional Instructions: It was found that you do have a small dermoid cyst on the left ovary. It was also noted that you have a fatty liver. They were unable to visualize the appendix. Other than that there was no acute abnormality of the abdomen. It is unsure what is causing her discomfort. This could be exacerbated from your gallbladder sludge. At this time there is no acute inflammation of the gallbladder. I have referred you to [facility]. Please call them to make a follow-up appointment. Please avoid greasy and high fatty foods. Over the next 24 to 48 hours please monitor for pain that becomes more severe, steady and concentrated in the specific area, uncontrollable vomiting, diarrhea, shaking, chills and fever greater than 100. If you experience any new or worsening symptoms please return to the emergency department. You are going to be treated for urinary tract infection. Abdominal Pain There are many causes of abdominal pain. Pain can mean a serious problem requiring surgery (such as appendicitis). It can also be an innocent problem that goes away on its own (such as a viral infection). Often, time must pass to determine the cause of pain. The physician does not feel that hospitalization is necessary, at present. Things may change within the next 24 hours. Call the doctor or come back for re- examination if any problems occur, such as: (1) Pain that becomes more severe, steady, or becomes concentrated in one specific area. Also, pain that is more severe with movement or coughing. (2) Vomiting that persists or becomes more frequent. (3) Blood in the vomitus, urine, or bowel movements. Blood in the stool may have a tarry or black appearance. (4) Shaking chills or fever greater than 100 degrees F. (5) The abdomen becomes more distended or swollen. (6) Bowel movements cease. (7) Failure to improve as expected. Urinary Tract Infection Your evaluation indicates that you have a urinary tract infection. This is due to germs growing in the bladder. This is a common problem. This infection usually responds quickly to antibiotics. Your antibiotic should be taken exactly as prescribed. Drink plenty of fluids -- three to four quarts a day. Occasionally, a bladder anesthetic will be prescribed to help stop the feeling of urgency until the antibiotic has a chance to clear the infection. This may cause your urine to be dark orange. Certain urine infections require a culture. If the doctor obtained a culture, the results will be back in two days. You should call to see if a change in treatment is needed. A repeat urinalysis after you finish treatment is often recommended. The physician will let you know if further testing is required. Call the doctor if you develop fever, chills, flank pain, inability to urin ate, or blood in the urine. Prescriptions: Cephalexin Monohydrate [Keflex 500 mg Capsule] 500 mg PO BID 5 Days #10 capsule Referrals: [facility] [Provider Group] - Follow up as needed
--- NOTE | 2019-04-26 20:06 | RADIOLOGY REPORT (SQ) ---
EXAM DESCRIPTION: U/S ABDOMEN LIMITED W/O DOP COMPLETED DATE/TIME: 04/26/2019 7:37 pm REASON FOR STUDY: RUQ pain COMPARISON: 03/03/2019, 11/29/2018 TECHNIQUE: Dynamic and static grayscale images acquired of the abdomen and recorded on PACS. Coreyo silvio selected color Doppler and spectral images recorded. LIMITATIONS: None. FINDINGS: PANCREAS: Limited visualization. LIVER: Fatty infiltration. 17.7 cm. LIVER VASCULATURE: Normal directional flow of the main portal vein and hepatic veins. GALLBLADDER: No stones. Normal wall thickness. No pericholecystic fluid. ULTRASOUND-DETECTED MUSE'S SIGN: Negative. INTRAHEPATIC DUCTS AND COMMON DUCT: CBD and intrahepatic ducts normal caliber. No filling defects. INFERIOR VENA CAVA: Normal flow. AORTA: No aneurysm. RIGHT KIDNEY: Normal size. Normal echogenicity. No solid or suspicious masses. No hydronephrosis. No calcifications. PERITONEAL AND RIGHT PLEURAL SPACE: No ascites or effusions. OTHER: No other significant findings. IMPRESSION: NORMAL RIGHT UPPER QUADRANT ULTRASOUND. TECHNICAL DOCUMENTATION: JOB ID: [id number]- All Rights Reserved Reading location - IP/workstation name: [email or web address]
--- NOTE | 2019-04-26 21:11 | RADIOLOGY REPORT (SQ) ---
EXAM DESCRIPTION: CT ABDOMEN PELVIS WITH IV CONTRAST COMPLETED DATE/TME: 04/26/2019 20:14 CLINICAL HISTORY: 19 years, Female, generalized abdominal pain, worse upper abd COMPARISON: None. TECHNIQUE: Images stored on PACS. All CT scanners at this facility use dose modulation, iterative reconstruction, and/or weight based dosing when appropriate to reduce radiation dose to as low as reasonably achievable (ALARA). [facility]: Dose Right [facility]: CareDose [facility]: Dose Right [facility]: Teradose 4D [facility]: [employer] LIMITATIONS: None. FINDINGS: Lung bases are grossly clear. The heart is of normal size. No pleural or pericardial fluid. The liver is fatty infiltrated. Focal fatty sparing is seen in the gallbladder fossa. Gallbladder is nondistended without inflammatory change. The pancreas, spleen, both adrenals, and both kidneys are unremarkable. The bowel is nonobstructed. It is unopacified with oral contrast. No focal inflammatory changes. The appendix is not seen. Pelvic contents demonstrate a complex fat containing lesion with a focus of calcification left adnexa presumably representing a dermoid of the left ovary measuring 2.2 cm in greatest dimension. Visualized bones are unremarkable. Shotty lymph nodes identified bilateral inguinal. IMPRESSION: No acute intra-abdominal process is identified. Incidental note is made of hepatic steatosis and a presumed small dermoid of the left ovary. TECHNICAL DOCUMENTATION: Quality ID # 436: Final reports with documentation of one or more dose reduction techniques (e.g., Automated exposure control, adjustment of the mA and/or kV according to patient size, use of iterative reconstruction technique) copyright 2011 [employer]- All Rights Reserved
[2019-04-26 22:20] VITALS: BP 115/68
== END 2019-04-26 22:14 | disposition home or self-care (01) ==
LOC: ER 17:18
DX: N39.0 Urinary tract infection, site not specified (principal); D27.1 Benign neoplasm of left ovary; K76.0 Fatty (change of) liver, not elsewhere classified; R35.0 Frequency of micturition; R10.12 Left upper quadrant pain; R10.11 Right upper quadrant pain; R10.817 Generalized abdominal tenderness
CPT/HCPCS: 99284; 96360; 36415; 87086; 83690; 85025; 81025; 80053; 81001; 76705; 74177; J7030

== ENCOUNTER 2019-08-31 17:21 | Emergency (ER) | payer BC ==
[2019-08-31 19:24] LABS: APPEARANCE,URINE CLOUDY; BILIRUBIN,URINE NEGATIVE (NEGATIVE); COLOR,URINE YELLOW; GLUCOSE, URINE NEGATIVE (NEGATIVE); KETONES,URINE NEGATIVE (NEGATIVE); LEUKOCYTE ESTERASE,URINE LARGE (NEGATIVE); NITRITE,URINE NEGATIVE (NEGATIVE); PROTEIN,URINE 30 mg/dL (NEGATIVE); URINE SPECIFIC GRAVITY 1.027
--- NOTE | 2019-08-31 19:29 | RADIOLOGY REPORT (SQ) ---
EXAM DESCRIPTION: CHEST SINGLE VIEW IMAGES COMPLETED DATE/TIME: 08/31/2019 7:19 pm REASON FOR STUDY: SOB COMPARISON: 11/29/2018 EXAM PARAMETERS: NUMBER OF VIEWS: One view. TECHNIQUE: Single frontal radiographic view of the chest acquired. RADIATION DOSE: NA LIMITATIONS: None. FINDINGS: LUNGS AND PLEURA: Low lung volumes. Stable right cardiophrenic fat pad, normal anatomic variant. No acute pulmonary consolidation. No pneumothorax or pleural effusion. MEDIASTINUM AND HILAR STRUCTURES: No masses. Contour normal. HEART AND VASCULAR STRUCTURES: Heart normal in size. Normal vasculature. BONES: No acute findings. HARDWARE: None in the chest. OTHER: No other significant finding. IMPRESSION: 1. Low lung volumes. No acute pulmonary findings. TECHNICAL DOCUMENTATION: JOB ID: [id number] [employer]- All Rights Reserved Reading location - IP/workstation name: [email or web address]
[2019-08-31 21:11] LABS: ABSOLUTE BASOPHILS # (AUTO) 0.1 10^3/uL (0.0-0.2); ABSOLUTE EOSINOPHILS # (AUTO) 0.2 10^3/uL (0.0-0.6); ABSOLUTE MONOCYTES (AUTO) 0.7 10^3/uL (0.1-1.4); ABSOLUTE NEUT (AUTO) 5.9 10^3/uL (1.7-8.2); BASOPHILS % (AUTO) 1.2 % (0-2); HEMATOCRIT 42.2 % (36.0-47.0); HEMOGLOBIN 14.1 g/dL (12.0-15.5); LYMPHOCYTES % (AUTO) 30.2 % (13-45); MEAN CORPUSCULAR HEMOGLOBIN 27.8 pg (27.0-33.4); MEAN CORPUSCULAR HGB CONC 33.4 g/dL (32.0-36.0); MEAN CORPUSCULAR VOLUME 83 fl (80-97); MONOCYTES % (AUTO) 7.2 % (3-13); PLATELET COUNT 273 10^3/uL (150-450); RED BLOOD COUNT 5.08 10^6/uL (3.72-5.28); RED CELL DISTRIBUTION WIDTH 13.9 % (11.5-14.0); SEGMENTED NEUTROPHILS % (AUTO) 59.4 % (42-78); TOTAL CELLS COUNTED % (AUTO) 100 %
--- NOTE | 2019-08-31 21:20 | ER Document Report ---
ED General - General Chief Complaint: Shortness Of Breath Stated Complaint: COUGH,CONGESTION,FEVER Time Seen by Provider: 08/31/19 17:32 Primary Care Provider: JACQUELYN LANG MD [Primary Care Provider] - Follow up as needed Notes: 19-year-old female presenting to the ER with shortness of breath, nonproductive cough, sore throat, subjective fever, headache, chills with of acute onset starting yesterday morning. Shortness of breath is occurring during exertion and at rest. Has not taken any Tylenol or NSAIDs for the fevers or her chills. Patient also reports intermittent chest pain, she believes is associated with the sludge with her gallbladder gallbladder sludge. Has bilateral lower abdominal tenderness that is not a new finding. This is related to her PCOS she states. No recent travel. Denies any nausea, vomiting, diarrhea. TRAVEL OUTSIDE OF THE [place] IN LAST 30 DAYS: No - Related Data Allergies/Adverse Reactions: No Known Allergies Allergy (Verified 04/26/19 18:25) Past Medical History - Social History Smoking Status: Never Smoker Chew tobacco use (# tins/day): No Frequency of alcohol use: Occasional Drug Abuse: None Lives with: Family Family History: DM Patient has homicidal ideation: No - Past Medical History Cardiac Medical History: Reports: None Pulmonary Medical History: Reports: None EENT Medical History: Reports: None Neurological Medical History: Reports: None Endocrine Medical History: Reports: None Other: bilary sludge Renal/ Medical History: Reports: Other - PCOS. Denies: Hx Peritoneal Dialysis Psychiatric Medical History: Reports: Hx Attention Deficit Hyperactivity Disorder, Hx Depression - Immunizations Immunizations up to date: Yes Hx Diphtheria, Pertussis, Tetanus Vaccination: Yes Review of Systems - Review of Systems Constitutional: See HPI EENT: See HPI Cardiovascular: See HPI Respiratory: See HPI Gastrointestinal: See HPI Genitourinary: No symptoms reported Female Genitourinary: No symptoms reported Skin: No symptoms reported Physical Exam - Vital signs Vitals: Temp Pulse Resp BP Pulse Ox 98.4 F 98 20 131/70 H 96 08/31/19 18:03 08/31/19 18:03 08/31/19 18:03 08/31/19 18:03 08/31/19 18:03 - Notes Notes: Adult General: GENERAL: Alert, interacts well. No acute distress HEAD: Normocephalic, atraumatic EYES: Pupils equal, round and reactive to light. Extraocular movements intact. ENT: Oral mucosa moist, tongue midline. Oropharynx unremarkable. Airway patent. Nares patent, sinuses nontender, ear canals unremarkable, TMs intact. NECK: Tender to palpation. Full range of motion. Supple. Trachea midline. No lymphadenopathy. LUNGS: Clear to auscultation bilaterally, no wheezes, rales, or rhonchi. No res piratory distress. Nontender chest wall. HEART: Regular rate and rhythm. No murmurs, rubs or gallops. ABDOMEN: Tender to deep palpation on bilateral lower quadrants. Soft, nontender. Nondistended. Bowel sounds present in all 4 quadrants. GENITOURINARY: Deferred EXTREMITIES: Moves all 4 extremities spontaneously. No cyanosis. BACK: No cervical, thoracic, lumbar midline tenderness. No saddle anesthesia, normal distal neurovascular exam. Moves all extremities with full range of motion. NEUROLOGICAL: Alert and oriented x3. Normal speech. PSYCH: Normal affect, normal mood. SKIN: Warm, dry, normal turgor. No rashes or lesions noted. Course - Re-evaluation Re-evalutation: 08/31/19 23:03 Patient presents afebrile, non-hypoxic in the ER today. Vital signs are stable. Patient's urinalysis shows some yeast. She was treated with Diflucan while in the ER. Her strep test came back negative. Chest x-ray showed no acute pulmonary findings and EKG was normal sinus rhythm. Believe patient symptoms to be related to an upper respiratory infection/viral pharyngitis. She was tested for COVID-19 results are pending. Discussed at length with patient that there were no significant findings on any of the labs or imaging performed. Also discussed the importance of self isolating until she hears from the health department in regards to the results of the COVID testing as she does show that she does live with her family. She can take Tylenol for her symptoms. If she develops worsening symptoms patient is instructed to either return to the ER or follow-up with her primary care provider. Patient acknowledges understanding of instructions and plan. 08/31/19 23:04 08/31/19 23:11 - Vital Signs Vital signs: Temp Pulse Resp BP Pulse Ox 98.9 F 91 18 110/72 97 08/31/19 22:25 08/31/19 22:25 08/31/19 22:25 08/31/19 22:25 08/31/19 22:25 - Laboratory Result Diagrams: 08/31/19 21:00 08/31/19 21:00 Laboratory results interpreted by me: 08/31/19 08/31/19 18:07 21:00 Glucose 111 H ALT 46 H Urine Protein 30 H Urine Urobilinogen 2.0 H Ur Leukocyte Esterase LARGE H - EKG Interpretation by Me Rate: Normal Rhythm: NSR Discharge - Discharge Clinical Impression: Upper respiratory infection Qualifiers: URI type: acute pharyngitis Pharyngitis/tonsillitis etiology: unspecified etiology Qualified Code(s): J02.9 - Acute pharyngitis, unspecified Clinical Impression: (Ruled Out): Viral pharyngitis Condition: Stable Disposition: HOME, SELF-CARE Instructions: Acetaminophen, Viral Syndrome ([facility]), Upper Respiratory Illness ([facility]) Additional Instructions: Recommend follow up with pcm within 7 days, sooner if symptoms worsen or you develop new symptoms. Please hydrate as able. At the present investigation for COVID-19, the [place] Department [employer] and [employer] Services (division on public health) advises you to adhere to the following guidance until your test results are reported to you. If your test result is positive, you will receive additional formation from your provider in your local health department at that time. Remain at home until you are cleared by the health provider or public health authorities. Keep a log of visitors to your home, notify any visitors to your home of your isolation status. If you plan to move to a new address of the country, notify the local health department in your County. Call your doctor or seek care if you have emergent medical need. Before seeking medical care, call him to get instructions from the provider before arriving at the medical office, clinic, or hospital. Notified them that you are being tested for the virus (COVID-19) so that arrangements can be made, as necessary, to prevent transmission to others in the healthcare setting. Next, notified the local health department in your county. If the medical emergency arises any need to call 911, and from the first responders that you are being tested for the virus that causes COVID-19. Next, notify the local health department and your county. Prescriptions: Acetaminophen [Tylenol] 975 mg PO Q6 PRN #36 capsule PRN Reason: Forms: Return to Work Referrals: JACQUELYN LANG MD [Primary Care Provider] - Follow up as needed
[2019-08-31 21:37] LABS: ALKALINE PHOSPHATASE 90 U/L (38-126); ANION GAP 7 (5-19); ASPARTATE AMINO TRANSFERASE 32 U/L (14-36); BILIRUBIN,TOTAL 0.3 mg/dL (0.2-1.3); BLOOD UREA NITROGEN 16 mg/dL (7-20); CALCIUM 9.4 mg/dL (8.4-10.2); CARBON DIOXIDE 25 mmol/L (22-30); CHLORIDE 106 mmol/L (98-107); GLUCOSE 111 mg/dL (75-110); POTASSIUM 4.3 mmol/L (3.6-5.0); TOTAL PROTEIN 7.1 g/dL (6.3-8.2)
[2019-08-31] MEDS ORDERED: FLUCONAZOLE 100 MG TABLET PO ONE (22:00)
[2019-08-31 22:26] VITALS: BP 110/72
--- NOTE | 2019-08-31 22:33 | EKG REPORT ---
SEVERITY:- NORMAL ECG - SINUS RHYTHM : Confirmed by: Yadira Calixto MD 31-Aug-2019 22:33:06
== END 2019-08-31 22:36 | disposition home or self-care (01) ==
LOC: ER 17:21
DX: J02.9 Acute pharyngitis, unspecified (principal); R06.02 Shortness of breath; R05 Cough; R09.81 Nasal congestion; R50.9 Fever, unspecified; R07.9 Chest pain, unspecified; R51 Headache; K82.9 Disease of gallbladder, unspecified
CPT/HCPCS: 36415; 71045; 80053; 81001; 84703; 85025; 87070; 87086; 87635; 87880; 93005; 93010; 99284